=== PATIENT | female | born 1985 | race Hispanic/Latino ===

== ENCOUNTER 2023-03-12 12:11 | Emergency (ER) | payer BC ==
[2023-03-12] MEDS ORDERED: MORPHINE 2 MG SYG ONE (13:13)
[2023-03-12] MEDS ORDERED: ONDANSETRON 4MG INJ ONE (13:13)
[2023-03-12] MEDS ORDERED: CEFTRIAXONE 1G VIAL ONE (14:51)
[2023-03-13 14:37] LABS: APPEARANCE,URINE CLOUDY (CLEAR); BILIRUBIN,URINE NEGATIVE (NEGATIVE); COLOR,URINE YELLOW (YELLOW); GLUCOSE, URINE (UA) NEGATIVE (NEGATIVE); KETONES,URINE NEGATIVE (NEGATIVE); LEUKOCYTE ESTERASE ,URINE LARGE Leu/uL (NEGATIVE); NITRATE,URINE POSITIVE (NEGATIVE); OCCULT BLOOD,URINE LARGE (NEGATIVE); PROTEIN,URINE 30 mg/dL (NEGATIVE); UROBILINOGEN,URINE 0.2 mg/dL (0.2-1.0)
[2023-03-13 14:38] LABS: ADD UA MICROSCOPIC YES; BACTERIA,URINE Many /HPF (None Seen); SQUAMOUS EPITHELIAL CELL,UR Rare /HPF (0-2); WBC,URINE 51-100 /HPF (0-1)
[2023-03-13 14:39] LABS: HCG,QUALITATIVE URINE NEGATIVE (NEGATIVE)
== END 2023-03-12 17:22 | disposition home or self-care (01) ==
LOC: EDH 12:11
DX: N13.2 Hydronephrosis with renal and ureteral calculous obstruction (principal); N32.89 Other specified disorders of bladder
CPT/HCPCS: 99284; 96374; 96375; 87040 ×2; 87077; 87088; 87186; 81001; 81025; 36415; 74018; J2270; J0696; J2405

== ENCOUNTER 2023-09-23 12:05 | Emergency (ER) | payer BC ==
[~2023-09-23] VITALS: Ht 160 cm; Wt 79.4 kg
[2023-09-23] MEDS: PREDNISONE 20 MG TABLET PO ONE (14:14)
[2023-09-23] MEDS: TIZANIDINE HCL 2 MG TABLET PO SCH (14:14)
[2023-09-23] MEDS: IBUPROFEN 600 MG TABLET PO ONE (14:15)
[2023-09-23 14:40] VITALS: BP 130/78; PULSE 78; RESP 17; O2SAT 100
[2023-09-23] MEDS: 0.9%NACL 1000ML 1,000 ML IV ONE (17:06)
[2023-09-23 17:08] LABS: BASOPHILS # (AUTO) 0.07 K/uL (0.00-0.20); BASOPHILS % (AUTO) 0.8 % (0.0-5.0); EOSINOPHILS # (AUTO) 0.33 K/uL (0.00-0.70); EOSINOPHILS % (AUTO) 3.6 % (0.0-8.0); HEMATOCRIT 41.7 % (36-48); IMMATURE GRANULOCYTE ABSOLUTE 0.03 K/uL (0-1); LYMPHOCYTES # (AUTO) 1.6 K/uL (1.0-4.8); LYMPHOCYTES % (AUTO) 17.3 % (21.0-51.0); MEAN CORPUSCULAR HEMOGLOBIN 28.7 pg (27.0-33.0); MEAN CORPUSCULAR HGB CONC 32.4 g/dL (32.0-36.0); MEAN CORPUSCULAR VOLUME 88.5 fL (79-99); MONOCYTES # (AUTO) 0.3 K/uL (0.1-1.0); MONOCYTES % (AUTO) 3.3 % (3.0-13.0); NEUTROPHILS # (AUTO) 6.8 K/uL (1.8-7.7); NEUTROPHILS % (AUTO) 74.7 % (40.0-77.0); PLATELET COUNT (AUTO) 285 K/uL (130-400); RED BLOOD CELL COUNT(AUTO) 4.71 MIL/uL (4.00-5.50); RED CELL DISTRIBUTION WIDTH 13.6 % (11.0-15.5); WHITE BLOOD COUNT (AUTO) 9.1 K/uL (4.8-10.8)
[2023-09-23 17:44] LABS: CREATININE 0.6 mg/dL (0.5-1.5); POTASSIUM 4.2 mmol/L (3.5-5.1)
[2023-09-23 17:49] LABS: ALBUMIN 3.7 g/dL (3.5-5.0); BILIRUBIN,TOTAL 0.8 mg/dL (0.2-1.0); TOTAL PROTEIN, SERUM 7.5 g/dL (6.0-8.3)
[2023-09-23 17:51] LABS: APPEARANCE,URINE CLOUDY (CLEAR); BILIRUBIN,URINE NEGATIVE (NEGATIVE); COLOR,URINE YELLOW (YELLOW); GLUCOSE, URINE (UA) NEGATIVE (NEGATIVE); KETONES,URINE NEGATIVE (NEGATIVE); LEUKOCYTE ESTERASE ,URINE 500 Leu/uL (NEGATIVE); NITRATE,URINE 2+ (NEGATIVE); OCCULT BLOOD,URINE MODERATE (NEGATIVE); PH,URINE 5.5 (5.0-8.0); PROTEIN,URINE 50 mg/dL (NEGATIVE); UROBILINOGEN,URINE 0.2 mg/dL (0.2-1.0)
[2023-09-23 17:52] LABS: ADD UA MICROSCOPIC YES
[2023-09-23 17:56] LABS: BACTERIA,URINE MOD /HPF (None Seen); MUCUS,URINE RARE LPF (None Seen); SQUAMOUS EPITHELIAL CELL,UR FEW /HPF (0-2); UNCLASSIFIED CRYSTAL 2 /HPF (None Seen); WBC CLUMP FEW /HPF (0-1); WBC,URINE 26-50 /HPF (0-1); YEAST,URINE BUDDING FEW /HPF (None Seen)
[2023-09-23] MEDS ORDERED: ACET-2079 PO (18:42)
[2023-09-23] MEDS ORDERED: CIPR-278 PO (18:42)
[2023-09-23] MEDS ORDERED: ONDA4TAB10 PO (18:42)
[2023-09-23] MEDS ORDERED: TAMS-1 PO (18:42)
[2023-09-23] MEDS: CEFTRIAXONE 1G VIAL IVPB ONE (19:43)
[2023-09-23] MEDS: TAMSULOSIN HCL 0.4 MG CAP.ER.24H PO ONE (19:43)
[2023-09-23] MEDS: ONDANSETRON 4MG INJ IVP ONE (19:44)
[2023-09-23] MEDS: KETOROLAC 30MG VIAL (30MG/ML) IVP ONE (19:44)
== END 2023-09-23 20:15 | disposition home or self-care (01) ==
LOC: EDH 12:05
DX: N13.2 Hydronephrosis with renal and ureteral calculous obstruction (principal); E78.00 Pure hypercholesterolemia, unspecified; Z98.51 Tubal ligation status
CPT/HCPCS: 99284; 96374; 72131; 96375; 96361; 80053; 85025; 87077; 87088; 87186; 83605; 81001; 36415; J7030; J0696; J2405; J1885